=== PATIENT | female | born 1985 | race American Indian/Alaskan Native ===

== ENCOUNTER 2016-12-29 20:49 | Emergency (ER) | payer SELFPAY ==
[2016-12-29] MEDS ORDERED: NORCO 5/325 PO ONE (23:17)
[2016-12-29] MEDS ORDERED: XYLOCAINE 1% 20 mL INFILTRATI ONE (23:17)
--- NOTE | 2016-12-29 23:18 | Emergency Department Report ---
- General Chief complaint: Animal Bite Stated complaint: POSSIBLE SPIDER BITE Time Seen by Provider: 12/29/16 23:08 Source: patient Mode of arrival: Ambulatory Limitations: No Limitations - History of Present Illness Initial comments: 31F PMH none p/w c/o right forearm abscess x4 days, mild small abscess left bicep region. Pt states she was visiting family member, may have have been bitten by spider. Denies fever, chills, nausea, vomiting. Visible 3cm abscess head right forearm draining pus. complaint: insect bite/sting, abscess/boil Onset/Timin -: days(s) Tetanus Up to Date: yes Location: LUE, RUE Severity: moderate Severity scale (0 -10): 5 Quality: aching Consistency: constant Improves with: none Treatments Prior to Arrival: attempted to drain pus at - Related Data Previous Rx's Medication Instructions Recorded Last Taken Type Cephalexin [Keflex] 500 mg PO Q12HR #14 cap 12/30/16 Unknown Rx Ibuprofen [Motrin] 600 mg PO Q8H PRN #30 tablet 12/30/16 Unknown Rx Ondansetron [Zofran Odt] 4 mg PO Q8H PRN #6 tab.rapdis 12/30/16 Unknown Rx Sulfamethoxazole/Trimethoprim 1 each PO BID #14 tablet 12/30/16 Unknown Rx [Bactrim DS TAB] Allergies Allergy/AdvReac Type Severity Reaction Status Date / Time No Known Allergies Allergy Unverified 12/29/16 21:50 Abscess Boil HPI - HPI Chief Complaint: Animal Bite Stated Complaint: POSSIBLE SPIDER BITE Time Seen by Provider: 12/29/16 23:08 Home Medications: Previous Rx's Medication Instructions Recorded Last Taken Type Cephalexin [Keflex] 500 mg PO Q12HR #14 cap 12/30/16 Unknown Rx Ibuprofen [Motrin] 600 mg PO Q8H PRN #30 tablet 12/30/16 Unknown Rx Ondansetron [Zofran Odt] 4 mg PO Q8H PRN #6 tab.rapdis 12/30/16 Unknown Rx Sulfamethoxazole/Trimethoprim 1 each PO BID #14 tablet 12/30/16 Unknown Rx [Bactrim DS TAB] Allergies/Adverse Reactions: Allergies Allergy/AdvReac Type Severity Reaction Status Date / Time No Known Allergies Allergy Unverified 12/29/16 21:50 ED Review of Systems ROS: Stated complaint: POSSIBLE SPIDER BITE Other details as noted in HPI Constitutional: denies: chills, fever Eyes: denies: eye pain, eye discharge, vision change ENT: denies: ear pain, throat pain Respiratory: denies: cough, shortness of breath, wheezing Cardiovascular: denies: chest pain, palpitations Endocrine: no symptoms reported Gastrointestinal: denies: abdominal pain, nausea, diarrhea Genitourinary: denies: urgency, dysuria, discharge Musculoskeletal: denies: back pain, joint swelling, arthralgia Skin: as per HPI (abscess on right forearm andf left bicep skin region). denies : rash, lesions Neurological: denies: headache, weakness, paresthesias Psychiatric: denies: anxiety, depression Hematological/Lymphatic: denies: easy bleeding, easy bruising ED Past Medical Hx - Past Medical History Previous Medical History?: No - Surgical History Past Surgical History?: Yes Additional Surgical History: right eye surgery as a child - Social History Smoking Status: Current Some Day Smoker - Medications Home Medications: Home Medications Medication Instructions Recorded Confirmed Last Taken Type Cephalexin [Keflex] 500 mg PO Q12HR #14 cap 12/30/16 Unknown Rx Ibuprofen [Motrin] 600 mg PO Q8H PRN #30 tablet 12/30/16 Unknown Rx Ondansetron [Zofran Odt] 4 mg PO Q8H PRN #6 tab.rapdis 12/30/16 Unknown Rx Sulfamethoxazole/Trimethoprim 1 each PO BID #14 tablet 12/30/16 Unknown Rx [Bactrim DS TAB] ED Physical Exam - General Limitations: No Limitations General appearance: alert, in no apparent distress - Head Head exam: Present: atraumatic, normocephalic - Eye Eye exam: Present: normal appearance, PERRL, EOMI - ENT ENT exam: Present: mucous membranes moist - Neck Neck exam: Present: normal inspection - Respiratory Respiratory exam: Present: normal lung sounds bilaterally. Absent: respiratory distress - Cardiovascular Cardiovascular Exam: Present: regular rate, normal rhythm. Absent: systolic murmur, diastolic murmur, rubs, gallop - GI/Abdominal GI/Abdominal exam: Present: soft, normal bowel sounds - Extremities Exam Extremities exam: Present: normal inspection - Expanded Upper Extremity Exam Left Shoulder Exam: Present: normal inspection, full ROM Upper Arm exam: Present: full ROM, tenderness, swelling ([id number] abscess left medial humeral region, minimal surroundign cellulitis) - Back Exam Back exam: Present: normal inspection - Neurological Exam Neurological exam: Present: alert, oriented X3 - Psychiatric Psychiatric exam: Present: normal affect, normal mood - Skin Skin exam: Present: warm, dry, intact, normal color. Absent: rash ED Course Vital Signs 12/29/16 12/30/16 21:52 01:41 Temperature 97.9 F Pulse Rate 80 71 Respiratory 20 18 Rate Blood Pressure 133/85 Blood Pressure 149/79 [Right] O2 Sat by Pulse 100 99 Oximetry - I & D Left Upper Arm Type of Procedure: Simple Site: left mid bicep region Blade Size: 11 I & D Procedure: betadine prep, gauze wick placed (3inch streip of 1/4 inch iodoform gauze) Progress: area infiltrated with lidocaine w/ epi1%, good local anesthesia achieved, single vertical stab incision made, mild amount of pus drainage from wound 2-3 ccs, decompression of abscess achieved, minimal bleeding. small3 inch strip of iodoform gauze placed then 4x4 gauze on top. Right Anterior Medial Distal Volar Arm Type of Procedure: Simple Site: right forearm Blade Size: 11 I & D Procedure: betadine prep Progress: good local anesthesia achieved w/ lidocaine 1% w/ epi, single stab incision made , about 5ccs of purulent drainage, minimal bleeding, wound culture sent, wound packed with 3 inch strip of iodoform gauze (1/4 inch), covered w/ 4x4 gauze after ED Medical Decision Making - Medical Decision Making A/P: Upper extremity abscesses and cellulitis 1-Bactrim and Keflex twice a day 1 week 2-Motrin 600 when necessary, Zofran when necessary 3-wound culture sent 4-advised patient to remove packing/iodoform gauze from wound tomorrow morning 5- I advised patient to return to the ED if there is spread of cellulitis, borders marked Critical care attestation.: If time is entered above; I have spent that time in minutes in the direct care of this critically ill patient, excluding procedure time. ED Disposition Clinical Impression: Abscess Cellulitis Qualifiers: Site of cellulitis: extremity Site of cellulitis of extremity: upper extremity Laterality: unspecified laterality Qualified Code(s): L03.119 - Cellulitis of unspecified part of limb Disposition: DC- TO HOME OR SELFCARE Is pt being admited?: No Does the pt Need Aspirin: No Condition: Stable Instructions: Cellulitis (ED), Abscess Incision and Drainage (ED), Abscess (ED) Prescriptions: Cephalexin [Keflex] 500 mg PO Q12HR #14 cap Ibuprofen [Motrin] 600 mg PO Q8H PRN #30 tablet PRN Reason: Pain Ondansetron [Zofran Odt] 4 mg PO Q8H PRN #6 tab.rapdis PRN Reason: Nausea Sulfamethoxazole/Trimethoprim [Bactrim DS TAB] 1 each PO BID #14 tablet Referrals: [facility] [Outside] - 3-5 Days Forms: Accompanied Note Time of Disposition: 01:15
[2016-12-30 01:41] VITALS: BP 149/79
== END 2016-12-30 01:41 | disposition home or self-care (01) ==
LOC: ED 20:49
DX: L02.414 Cutaneous abscess of left upper limb (principal); L02.413 Cutaneous abscess of right upper limb; F17.200 Nicotine dependence, unspecified, uncomplicated
CPT/HCPCS: 87076; 87116; 87186